=== PATIENT | female | born 2000 | race Caucasian/White ===

== ENCOUNTER 2019-08-31 13:46 | Emergency (ER) | payer OTHER ==
[2019-08-31 14:01] VITALS: BMI 24.2
--- NOTE | 2019-08-31 14:36 | PDOC ---
Attending Attestation - Resident Resident Name: Skyla Malone - HPI HPI: 08/31/19 16:10 Pt presents to the ED complaining of suicidal ideation. The patient has a several week history of depression, accompanied by anhedonia, loss of appetite, feelings of guilt and suicidal thoughts. The patient made multiple superficial cuts to her arms and thighs last night in a suicide attempt. - Physicial Exam PE: 08/31/19 16:14 Agree with resident exam. Patient is alert and oriented and in NAD. Neuro: alert and oriented x 3. CN grossly intact. Flat mood and affect. Very brief replies to questions. - Medical Decision Making 08/31/19 16:16 Pt presents to the ED complaining of suicidal ideation and depression. Seen by psychiatry who has decided that she will be committed for psychiatric treatment. Will hold in the ED pending open psychiatric bed.
--- NOTE | 2019-08-31 14:46 | PDOC ---
History of Present Illness - General Chief Complaint: Suicidal Stated Complaint: SUICIDAL Time Seen by Provider: 08/31/19 14:35 - History of Present Illness Initial Comments: Cynthia Ugarte is a 18yo with a history of depression and cutting behavior (5 -6 years ago) who presents with a friend after a suicide attempt today. She says that she cut her arms and legs this morning in an attempt to kill herself. She states that she has been feeling very sad for "a while" but has not talked to anyone about her feelings, though she did previously see a therapist in middle and high school. She reports that she has been excessively tired, sleeping much of the day, and has lost her appetite. She reports that her clothes have become very loose, though she does not know if she has lost weight. She reports loss of interest in activities; she recently tried to get back into playing soccer, which she used to enjoy, but could not find the energy to continue. Ms Ugarte additionally says that she does not like to be at home (lives with parents and 2 siblings) because she is uncomfortable as she feels she is letting everyone down. She does feel safe at home and does not have concerns that anyone will harm her or that she will harm anyone else. Ms Ugarte denies any hallucinations, delusion, drug use, or risky behavior. She does report drinking alcohol several times per week in an attempt to feel better. She also endorses occasional periods of time when she feels anxious and restless, when she does not sleep much, but she is unable to clarify how often this occurs or how long it lasts. Past History - Past Medical History Allergies/Adverse Reactions: Allergies Allergy/AdvReac Type Severity Reaction Status Date / Time No Known Allergies Allergy Verified 08/31/19 14:02 Home Medications: Ambulatory Orders No Home Medications 0 dose .ROUTE UTDICT 03/07/13 COPD: No Psychiatric Problems: Yes - Psycho Social/Smoking Cessation Hx Smoking Status: No Smoking History: Never smoked Have you smoked in the past 12 months: No Number of Cigarettes Smoked Daily: 0 Information on smoking cessation initiated: No Hx Alcohol Use: No Drug/Substance Use Hx: No Review of Systems - Review of Systems Comments:: General: No fevers, no chills, no weight or appetite change, no malaise HEENT: No changes in vision, no changes in hearing, no congestion, no sore throat CV: No chest pain, no palpitations, no LE edema Pulm: No SOB, no cough, no wheezing GI: No nausea or vomiting, no change in bowel habits, no melena : No frequency, no urgency, no dysuria Musc: No back pain, no joint swelling, no recent injury Skin: No rash, no lesions, no erythema Endo: No excessive thirst, no heat/cold intolerance Heme: No unusual bruising or bleeding, no swollen glands Neuro: No syncope, no numbness/tingling, no focal weakness Vasc: No claudication Psych: See HPI *Physical Exam - Vital Signs Last Vital Signs Temp Pulse Resp BP Pulse Ox 98.0 F 85 16 152/87 100 08/31/19 13:58 08/31/19 13:58 08/31/19 13:58 08/31/19 13:58 08/31/19 13:58 - Physical Exam General: In no acute distress HEENT: Atraumatic, PERRL, EOMI, MMM, voice normal Cards: RRR, no murmur appreciated Pulm: Comfortable on room air, clear to auscultation bilaterally Abd: Soft, nontender, nondistended : No CVA tenderness Ext: Moves all extremities, ROM intact. No LE edema. Strength 5/5 and equal bilaterally Vasc: Extremities WWP. Skin: Numerous shallow, linear lacerations over b/l anterior (palmar) forearms, b/l anterior thighs. No active bleeding. no surrounding erythema or edema. No additional rash or lesion. Neuro: A&Ox3, CN grossly intact, normal speech, motor/sensory grossly intact and symmetric Psych: Depressed, does not make eye contact, minimal facial expression. Speech logical, appropriate rate. No hallucinations/delusions observed. Expresses active suicidal ideation. ED Treatment Course - LABORATORY CBC & Chemistry Diagram: 08/31/19 15:40 08/31/19 15:40 Medical Decision Making - Medical Decision Making 08/31/19 14:45 Cynthia Ugarte is a 18yo with a history of depression and cutting behavior (5 -6 years ago) who presents with a friend after a suicide attempt today. She is noted to have multiple shallow cuts on her b/l forearms and thighs but no life- threatening injuries. - Likely major depression with sadness, fatigue, loss of appetite, loss of interest, guilt, self-medication w/ alcohol. H/o depression and not currently on treatment - Psychiatry consult for evaluation - Multiple lacerations are shallow and not bleeding, do not need urgent intervention - Medical clearance for possible transfer. CBC, CMP, TFT's, UA, U preg, tox, salicylates, acetaminophen 08/31/19 16:21 - Seen by psych (Clayton Hoang). Should be sent for inpatient psych management - 2PC forms signed by BETH Hoang and Dr Perez - Will page social work for help with placement 08/31/19 17:22 - Labs reviewed. No concerning abnormalities. Tox negative, negative - No response from SW. Will re-page 08/31/19 17:37 - Social work is no longer available in the hospital - Will need social work or case management to assist with transfer to inpatient psych when they are available - Will remain in ED pending transfer to inpatient psych. 09/01/19 00:00 - Pt still resting comfortably - To be signed out to Dr Radford for the remainder of her ED care. Discussed with Dr Chris Amaya PGY2 Discharge - Discharge Information Problems reviewed: Yes Clinical Impression/Diagnosis: Suicidal intent Condition: Stable - Follow up/Referral - Patient Discharge Instructions - Post Discharge Activity Work/Back to School Note: My Personal Safety Plan
[2019-08-31 15:53] LABS: BASO % 0.3 % (0-2.0); EOS % 1.8 % (0-4.5); HEMATOCRIT 41.5 % (32.4-45.2); HEMOGLOBIN 13.9 GM/dL (10.7-15.3); LYMPH % 27.7 % (8-40); MCH 30.4 pg (25.7-33.7); MCHC 33.5 g/dl (32.0-36.0); MEAN CELL VOLUME 90.7 fl (80-96); MEAN PLT VOLUME 8.9 fl (7.5-11.1); MONO % 5.5 % (3.8-10.2); NEUT % 64.7 % (42.8-82.8); PLATELET COUNT 263 K/MM3 (134-434); RBC 4.58 M/mm3 (3.60-5.2); RDW 13.2 % (11.6-15.6); WHITE BLOOD COUNT 9.4 K/mm3 (4.0-10.0)
[2019-08-31 16:02] LABS: EPI CELLS 7.7 /HPF (0-5/HPF); HYALINE CASTS 4 /lpf (0-8); URINE APPEARANCE CLOUDY; URINE BACTERIA 136.3 /hpf (NEGATIVE); URINE BILIRUBIN NEGATIVE (NEGATIVE); URINE COLOR YELLOW; URINE GLUCOSE (UA) NEGATIVE (NEGATIVE); URINE KETONE 1+ (NEGATIVE); URINE LEUK ESTERASE TRACE (NEGATIVE); URINE NITRITE NEGATIVE (NEGATIVE); URINE PROTEIN NEGATIVE (NEGATIVE); URINE RBC 3 /hpf (0-4); URINE UROBILINOGEN 0.2 mg/dL (0.2-1.0); URINE WBC 5 /hpf (0-5)
[2019-08-31 16:11] LABS: COCAINE, UR NEGATIVE ng/ml (CUTOFF=300); OPIATES, URI NEGATIVE ng/ml (CUTOFF=300); PHENCYCLIDINE,URINE NEGATIVE ng/ml (CUTOFF=25); URINE AMPHETAMINES NEGATIVE ng/ml (CUTOFF=500); URINE BENZODIAZEPINES NEGATIVE ng/ml (CUTOFF=200)
[2019-08-31 16:12] LABS: METHADONE, UR NEGATIVE ng/ml (CUTOFF=300); URINE BARBITURATES NEGATIVE ng/ml (CUTOFF=200)
[2019-08-31 16:26] LABS: ALBUMIN 3.8 g/dl (3.4-5.0); BILIRUBIN,TOTAL 0.6 mg/dL (0.2-1); BLOOD UREA NITROGEN 9.8 mg/dL (7-18); CREATININE 0.5 mg/dL (0.55-1.3); POTASSIUM 3.9 mmol/L (3.5-5.1); TOT PROT 7.2 g/dl (6.4-8.2)
--- NOTE | 2019-08-31 16:29 | PN ---
Mental Health Exam - Mental Status Exam Alert and Oriented to: Time, Place, Person Cognitive Function: Grossly Intact Patient Appearance: Unkempt, Disheveled Mood: Apathetic, Depressed, Fearful, Sad, Nervous, Withdrawn, Anxious, Apprehensive Affect: Mood Congruent, Flat, Blunted, Labile Patient Behavior: Crying, Guarded, Fearful, Impulsive, Talkative, Cooperative Speech Pattern: Perseverating, Tangential Voice Loudness: Moderately Soft/Quiet Thought Process: Tangential Thought Disorder: Not Present Hallucinations: None Suicidal Ideation: Current, Plan ( cutting self) Homicidal Ideation: Denies (" but very fearful to see her mother". ) Insight/Judgement: Impaired Sleep: Poorly, Difficulty falling asleep Appetite: Poor, Weight loss Muscle strength/Tone: Mild Hypertonicity Gait/Station: Deferred Additional Comments: Ms Ugarte is a 18 yo female seen in [facility] Er, room 9 with a security watch. Client in hospital gowns, slight, underweight build. She presents to ER today with her friend Kingsley after she has made multiple lacerations on her arms with a blade. She is extremly anxious, and tearful during interview. She expressed that "my life is not worth living". Client ackonwledged that she started to binge dring over last monday and . In past she has useed marjuanna. She has lost intrest in what she likes to do. 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 She has a poor sleep pattern, loss of appetite, express suicidal ideation with plan. Client was seen by a therapist in the past year but stopped attending. She has poor communication with her mother at this time, who she feels does not understand her. . DX major Depression recurrent, ( was treated with SSRI as a 7yo child ) . Plan admit to inpatient psychiatry on involuntary status as she is a danger to herself. Start Lexapro 5mg per day.
[2019-08-31] MEDS ORDERED: ACETAMINOPHEN 325 MG TABLET (FP) PO PRN (19:30)
--- NOTE | 2019-09-01 19:14 | PDOC ---
*Physical Exam - Vital Signs Last Vital Signs Temp Pulse Resp BP Pulse Ox 97.7 F 82 19 124/79 98 09/01/19 12:23 09/01/19 16:59 09/01/19 16:59 09/01/19 16:59 09/01/19 16:59 ED Treatment Course - LABORATORY CBC & Chemistry Diagram: 08/31/19 15:40 08/31/19 15:40 - ADDITIONAL ORDERS Additional order review: Laboratory Results 09/01/19 11:00 Alcohol, Quantitative < 3 08/31/19 15:40 RBC 4.58 MCV 90.7 MCHC 33.5 RDW 13.2 MPV 8.9 Neutrophils % 64.7 Lymphocytes % 27.7 Monocytes % 5.5 Eosinophils % 1.8 Basophils % 0.3 Medical Decision Making - Medical Decision Making 09/01/19 19:13 Received signout from day team. Cynthia Ugarte is a 18yo with a history of depression and cutting behavior (5 -6 years ago) presenting after a suicide attempt (multiple shallow cuts on her b /l forearms and thighs but no life-threatening injuries) likely d/t major depression. On re-examination, pt calm, denies SI/HI, under 1:1 observation. Pt medically cleared for transfer to inpatient psych. Discharge - Discharge Information Problems reviewed: Yes Clinical Impression/Diagnosis: Suicidal intent Condition: Stable - Follow up/Referral - Patient Discharge Instructions - Post Discharge Activity Work/Back to School Note: My Personal Safety Plan
[2019-09-01] MEDS ORDERED: ACETAMINOPHEN 325 MG TABLET (FP) ONE (23:33)
--- NOTE | 2019-09-02 00:54 | EKG ---
Test Reason : Blood Pressure : / mmHG Vent. Rate : 062 BPM Atrial Rate : 062 BPM P-R Int : 170 ms QRS Dur : 070 ms QT Int : 388 ms P-R-T Axes : 058 053 041 degrees QTc Int : 393 ms NORMAL SINUS RHYTHM POSSIBLE LEFT ATRIAL ENLARGEMENT BORDERLINE ECG NO PREVIOUS ECGS AVAILABLE Confirmed by COSTA RIDLEY, MAGNOLIA ([id number]) on 09/02/2019 12:54:21 AM Referred By: Confirmed By:MAGNOLIA SKELTON MD
--- NOTE | 2019-09-02 04:51 | PDOC ---
*Physical Exam - Vital Signs Last Vital Signs Temp Pulse Resp BP Pulse Ox 98.6 F 82 16 110/76 100 09/01/19 20:14 09/02/19 04:28 09/02/19 04:28 09/02/19 04:28 09/02/19 04:28 ED Treatment Course - LABORATORY CBC & Chemistry Diagram: 08/31/19 15:40 08/31/19 15:40 - ADDITIONAL ORDERS Additional order review: 08/31/19 15:40 RBC 4.58 MCV 90.7 MCHC 33.5 RDW 13.2 MPV 8.9 Neutrophils % 64.7 Lymphocytes % 27.7 Monocytes % 5.5 Eosinophils % 1.8 Basophils % 0.3 Medical Decision Making - Medical Decision Making 09/02/19 04:50 Patient resting comfortably. Not agitated. Discharge - Discharge Information Problems reviewed: Yes Clinical Impression/Diagnosis: Suicidal intent Condition: Stable - Follow up/Referral - Patient Discharge Instructions - Post Discharge Activity Work/Back to School Note: My Personal Safety Plan
--- NOTE | 2019-09-02 06:44 | PN ---
Progress Note, Physician Chief Complaint: cherri Ugarte is a 18 yo female seen in [facility] Er, room 9 with a security watch. Client in sleeping on stretcher, hospital gowns, slight, underweight build. She presents to ER on 08/31 by ambulance, with her friend Kingsley after she has made multiple lacerations on her arms, and thighs with a blade. She is extremely anxious, and tearful during interview. She expressed that "my life is not worth living". Client acknowledged that she started to binge drink over previous week. In past she smoked marijuana, denies other substance use. She has lost interest in what she likes to do. 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 She has a poor sleep pattern, loss of appetite, express suicidal ideation with plan. Client was seen by a therapist in the past year but stopped attending. She has poor communication with her mother at this time, who she feels does not understand her, she feels extremely guilty, that she has let her family down in so many ways. - Current Medication List Current Medications: Active Medications Acetaminophen (Tylenol -) 650 mg PO Q6H PRN PRN Reason: PAIN Last Admin: 09/01/19 23:34 Dose: 650 mg - Objective Vital Signs: Vital Signs Temperature 98.6 F 09/01/19 20:14 Pulse Rate 82 09/02/19 04:28 Respiratory Rate 16 09/02/19 04:28 Blood Pressure 110/76 09/02/19 04:28 O2 Sat by Pulse Oximetry (%) 100 09/02/19 04:28 Constitutional: Yes: Anxious, Thin Respiratory: Yes: WNL Psychiatric: Yes: Suicidal Ideation (Ms Ugarte is unable to contract for safety. She is impulsive and likely to hurt herself again without treatment and safety plan in place.) Labs: CBC, BMP 08/31/19 15:40 08/31/19 15:40 Problem List - Problems (1) Major depressive disorder, recurrent Code(s): F33.9 - MAJOR DEPRESSIVE DISORDER, RECURRENT, UNSPECIFIED Qualifiers: Active/Remission status: currently active Major depression episode severity : severe Psychotic features: without psychotic features Qualified Code(s): F33.2 - Major depressive disorder, recurrent severe without psychotic features Assessment/Plan She is in danger to self, severely anxious and depression. Seek/ request hospital admission to inpatient psychiatric Facility. Certification paperwork complete !11/01/2018. Maintain safety precautions, no sharps in vicinity, safety Constant observation. Start Lexapro 5mg per day for depression, Ms Ugarte is in agreement.
--- NOTE | 2019-09-02 07:17 | PDOC ---
*Physical Exam - Vital Signs Last Vital Signs Temp Pulse Resp BP Pulse Ox 98.6 F 57 L 18 110/63 97 09/01/19 20:14 09/02/19 07:08 09/02/19 07:08 09/02/19 07:08 09/02/19 07:08 - Physical Exam General Appearance: Yes: Nourished, Appropriately Dressed. No: Apparent Distress HEENT: positive: EOMI, CHRISTAL, Normal ENT Inspection, Normal Voice Neck: positive: Supple. negative: Rigid Respiratory/Chest: positive: Lungs Clear, Normal Breath Sounds Cardiovascular: positive: Regular Rhythm, Regular Rate, S1, S2 Vascular Pulses: Dorsalis-Pedis (R): 2+, Doralis-Pedis (L): 2+ Gastrointestinal/Abdominal: positive: Normal Bowel Sounds, Soft Lymphatic: negative: Adenopathy Musculoskeletal: positive: Normal Inspection. 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 intact, Fully Oriented, Alert, Normal Mood/ Affect, Normal Response, Motor Strength 01/27 ED Treatment Course - LABORATORY CBC & Chemistry Diagram: 08/31/19 15:40 08/31/19 15:40 - ADDITIONAL ORDERS Additional order review: 08/31/19 15:40 RBC 4.58 MCV 90.7 MCHC 33.5 RDW 13.2 MPV 8.9 Neutrophils % 64.7 Lymphocytes % 27.7 Monocytes % 5.5 Eosinophils % 1.8 Basophils % 0.3 Medical Decision Making - Medical Decision Making Patient signed out to me from night team pending transfer - I have reviewed the prior notes and two PC's have signed the necessity for transfer - I called the [facility] at 7:15 am and they told me they have all the necessary papers for the transfer so they are only waiting on a room to clear up at [facility] - The transfer center [place] said they are not missing anything and just waiting for a room to clear up - They told me they will call me back with an update at [phone] Arnold's note - patient is to be started on lexapro 5 mg Calling transfer center back at 10:45 am - Speaking with Awilda - She states they are taking adolescent patients right now. Our patient is still on the wait list. Difficult to predict bc of what they get in their ER. - She is trying to connect me with an attending or resident at [facility] - Dr. Danilo Wilkins is the attending at [facility] - they will message him and ask to call the [phone] number I spoke with social media marketer who has called [facility] two times today. They are saying they still do not have any beds ready for her. - Patient will be signed out to night team for further observation until a bed is ready. Discharge - Discharge Information Problems reviewed: Yes Clinical Impression/Diagnosis: Suicidal intent Condition: Stable Disposition: TRANSFER ACUTE CARE/OTHER HOSP - Admission No - Follow up/Referral - Patient Discharge Instructions - Post Discharge Activity Work/Back to School Note: My Personal Safety Plan
[2019-09-02] MEDS ORDERED: ESCITALOPRAM OXALATE 10 MG TABLET (FP) PO ONE (07:21)
[2019-09-02] MEDS ORDERED: ESCITALOPRAM OXALATE 10 MG TABLET (FP) ONE (09:32)
--- NOTE | 2019-09-03 05:50 | PDOC ---
*Physical Exam - Vital Signs Last Vital Signs Temp Pulse Resp BP Pulse Ox 98.1 F 64 18 104/59 L 99 09/03/19 03:24 09/03/19 03:24 09/03/19 03:24 09/03/19 03:24 09/03/19 03:24 - Physical Exam General Appearance: Yes: Nourished, Appropriately Dressed. No: Apparent Distress HEENT: positive: EOMI Neck: positive: Supple. negative: Carotid bruit Respiratory/Chest: positive: Lungs Clear, Normal Breath Sounds. negative: Crackles, Rales, Rhonchi, Stridor, Wheezing Cardiovascular: positive: Regular Rhythm, Regular Rate Vascular Pulses: Dorsalis-Pedis (R): 4+, Doralis-Pedis (L): 4+ Gastrointestinal/Abdominal: positive: Flat, Soft. negative: Tenderness Musculoskeletal: negative: CVA Tenderness Integumentary: positive: Normal Color, Dry, Warm Neurologic: positive: Fully Oriented, Alert, Normal Mood/Affect ED Treatment Course - LABORATORY CBC & Chemistry Diagram: 08/31/19 15:40 08/31/19 15:40 - ADDITIONAL ORDERS Additional order review: 08/31/19 15:40 RBC 4.58 MCV 90.7 MCHC 33.5 RDW 13.2 MPV 8.9 Neutrophils % 64.7 Lymphocytes % 27.7 Monocytes % 5.5 Eosinophils % 1.8 Basophils % 0.3 - Medications Given in the ED: ED Medications Discontinued Medications Generic Name Dose Route Start Last Admin Trade Name Freq PRN Reason Stop Dose Admin Escitalopram Oxalate 5 mg 09/02/19 07:21 09/02/19 09:38 Lexapro - PO 09/02/19 07:22 5 mg ONCE ONE Administration Medical Decision Making - Medical Decision Making 09/03/19 05:54 s/o from day team - pending transfer to [facility] for suicidal ideation, 2 PC -Called [facility], states pt is still on the wait list under review Pt stable, no medical complaints Discharge - Discharge Information Problems reviewed: Yes Clinical Impression/Diagnosis: Suicidal intent Condition: Stable Disposition: TRANSFER ACUTE CARE/OTHER HOSP - Follow up/Referral - Patient Discharge Instructions - Post Discharge Activity Work/Back to School Note: My Personal Safety Plan
--- NOTE | 2019-09-03 07:21 | PDOC ---
*Physical Exam - Vital Signs Last Vital Signs Temp Pulse Resp BP Pulse Ox 98.1 F 65 18 107/67 99 09/03/19 03:24 09/03/19 06:24 09/03/19 06:24 09/03/19 06:24 09/03/19 06:24 - Physical Exam General Appearance: Yes: Nourished, Appropriately Dressed. No: Apparent Distress HEENT: positive: EOMI, CHRISTAL, Normal ENT Inspection, Normal Voice Neck: positive: Supple Respiratory/Chest: positive: Lungs Clear, Normal Breath Sounds. negative: Respiratory Distress, Accessory Muscle Use Cardiovascular: positive: Regular Rhythm, Regular Rate, S1, S2 Vascular Pulses: Dorsalis-Pedis (R): 2+, Doralis-Pedis (L): 2+ Gastrointestinal/Abdominal: positive: Normal Bowel Sounds, Soft Rectal Exam: positive: deferred Lymphatic: negative: Adenopathy Musculoskeletal: positive: Normal Inspection. 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 NML intact, Fully Oriented, Alert, Normal Mood/ Affect, Normal Response ED Treatment Course - LABORATORY CBC & Chemistry Diagram: 08/31/19 15:40 08/31/19 15:40 - ADDITIONAL ORDERS Additional order review: 08/31/19 15:40 RBC 4.58 MCV 90.7 MCHC 33.5 RDW 13.2 MPV 8.9 Neutrophils % 64.7 Lymphocytes % 27.7 Monocytes % 5.5 Eosinophils % 1.8 Basophils % 0.3 - Medications Given in the ED: ED Medications Discontinued Medications Generic Name Dose Route Start Last Admin Trade Name Mayela PRN Reason Stop Dose Admin Escitalopram Oxalate 5 mg 09/02/19 07:21 09/02/19 09:38 Lexapro - PO 09/02/19 07:22 5 mg ONCE ONE Administration Medical Decision Making - Medical Decision Making Signed out to me from night team Calling [facility] at 8 am - Spoke with Disha at transfer center. - As of 4:11 am patient was on wait list, they are getting ready to round and discuss all patients awaiting beds. - All papers have been filled out - Patient is only awaiting a bed - Transfer center states they will keep me posted every 2 hours and call me at [phone] Call back from disha at 8:45 am - They would like to receive a recent note as an update on the patient - Will fax over most recent psychiatry report - Per Disha - Patient placed on high priority list to receive a bed - I have faxed the recent [place] note to the Transfer center # at 9 am - transfer center called at 9:40 saying they have not received the fax - I re-faxed it again at 9:45 - Calling transfer center to confirm they received fax Speaking with Awilda now - 9:50 - She states the fax is usually delayed and comes in 15 minutes after being sent - She says they have not yet received the fax but she will call in 15 minutes if she did not get it. - She has given me a 2nd fax number - [phone] - Fax sent over to 2nd fax number [facility] called back at 11:00 AM and said they received faxed paper, patient is accepted for transfer, they are just waiting for an open room. - Dr. Jauregui re-evaluated patient today and agrees with current plan that patient still needs transfer to [facility] for full psych admission [facility] has a bed for the patient - She is accepted for transfer at 2:30 pm - [facility] room details: A2, 1246, Bed A Accepting physician: Dr. woodruff at [facility] EMS took patient out of ER to [place] Discharge - Discharge Information Problems reviewed: Yes Clinical Impression/Diagnosis: Suicidal intent Condition: Stable Disposition: TRANSFER ACUTE CARE/OTHER HOSP - Admission No - Follow up/Referral - Patient Discharge Instructions Patient Printed Discharge Instructions: DI for Suicidal Ideation-Adult - Post Discharge Activity Work/Back to School Note: My Personal Safety Plan - Transfer to Acute Care Facility [facility] Accepting Physician:: Dr. Woodruff Transfer Comment: A2 1246 Bed A
[2019-09-03] MEDS ORDERED: ESCITALOPRAM OXALATE 10 MG TABLET (FP) PO ONE (08:44)
[2019-09-03] MEDS ORDERED: ESCITALOPRAM OXALATE 10 MG TABLET (FP) ONE (10:27)
--- NOTE | 2019-09-03 11:09 | PN ---
Progress Note (short form) - Note Progress Note: Psych re evaluation; MS: alert, oriented, appears sad and withdrawn. Reports still feeling suicidal and worthless and hopeless. Cognition intact.Not Psychotic at this time. Plan; 1) Continue with 1:1. 2) Transfer to In Patient Psych unit.
[2019-09-03 16:05] VITALS: BP 122/67; PULSE 79; TEMP 97.6
== END 2019-09-03 16:42 | disposition short-term general hospital (02) ==
LOC: JER 13:46
DX: T14.91XA Suicide attempt, initial encounter (principal); X78.9XXA Intentional self-harm by unspecified sharp object, initial encounter; Y93.89 Activity, other specified; Y92.89 Other specified places as the place of occurrence of the external cause; F33.9 Major depressive disorder, recurrent, unspecified; F33.2 Major depressive disorder, recurrent severe without psychotic features
CPT/HCPCS: 36415; 71045-TC-FY; 80053; 80307; 81003; 84439; 84443; 84703; 85025; 93005; 93010; 99285-25

== ENCOUNTER 2019-10-29 19:52 | Emergency (ER) | payer OTHER ==
[2019-10-29 20:04] VITALS: BP 116/76; PULSE 92; TEMP 98.5; BMI 22.2
--- NOTE | 2019-10-29 20:33 | PDOC ---
Rapid Medical Evaluation Chief Complaint: Vaginal Bleeding Time Seen by Provider: 10/29/19 20:31 Medical Evaluation: Allergies Allergy/AdvReac Type Severity Reaction Status Date / Time Penicillins Allergy Verified 10/29/19 20:04 Vital Signs Temp Pulse Resp BP Pulse Ox 98.5 F 92 H 18 116/76 98 10/29/19 19:56 10/29/19 19:56 10/29/19 19:56 10/29/19 19:56 10/29/19 19:56 10/29/19 20:32 Pt c/o: vag bleed since this am, 5 weeks preg, mild lower abd cramping Pt on brief exam: vss, mid suprapubic tenderness, pt ordered for: labs, urine, u/s Pt to proceed to the ED Discharge Disposition - Diagnosis Vagina bleeding, Pelvic pain with positive beta-human chorionic gonadotropin ( BhCG) in female, UTI (urinary tract infection) - Discharge Dispostion Disposition: HOME Last Admission D/C Date: 01/01/00 - Prescriptions Prescriptions: Nitrofurantoin Monohyd/M-Cryst [Macrobid -] 100 mg PO BID #14 capsule - Referrals Referrals: Jacek Douglas MD [Staff Physician] - Call tomorrow - Patient Instructions Printed Discharge Instructions: DI for Vaginal Bleeding During Additional Instructions: take macrobid as prescribed Return to the ER if you are soaking 2 pads per hour, severe abdominal pain, or worsening symptoms. it is very important that you return in 2 days for your levels or follow-up with your outside cutter in 2 days - Post Discharge Activity Work/School Note: Back to Work
[2019-10-29 22:06] LABS: BASO % 0.5 % (0-2.0); EOS % 2.9 % (0-4.5); HEMATOCRIT 39.5 % (32.4-45.2); HEMOGLOBIN 13.1 GM/dL (10.7-15.3); LYMPH % 22.3 % (8-40); MCH 30.2 pg (25.7-33.7); MCHC 33.3 g/dl (32.0-36.0); MEAN CELL VOLUME 90.8 fl (80-96); MEAN PLT VOLUME 8.8 fl (7.5-11.1); MONO % 7.4 % (3.8-10.2); NEUT % 66.9 % (42.8-82.8); PLATELET COUNT 255 K/MM3 (134-434); RBC 4.35 M/mm3 (3.60-5.2); RDW 13.5 % (11.6-15.6); WHITE BLOOD COUNT 10.6 K/mm3 (4.0-10.0)
[2019-10-29 22:24] LABS: EPI CELLS 11.4 /HPF (0-5/HPF); HYALINE CASTS 15 /lpf (0-8); URINE APPEARANCE CLOUDY; URINE BACTERIA 890.1 /hpf (NEGATIVE); URINE BILIRUBIN NEGATIVE (NEGATIVE); URINE COLOR YELLOW; URINE GLUCOSE (UA) NEGATIVE (NEGATIVE); URINE KETONE NEGATIVE (NEGATIVE); URINE LEUK ESTERASE 2+ (NEGATIVE); URINE NITRITE NEGATIVE (NEGATIVE); URINE PROTEIN NEGATIVE (NEGATIVE); URINE UROBILINOGEN 0.2 mg/dL (0.2-1.0); URINE WBC 83 /hpf (0-5)
[2019-10-29 22:38] LABS: ALBUMIN 3.7 g/dl (3.4-5.0); BILIRUBIN,TOTAL 0.2 mg/dL (0.2-1); BLOOD UREA NITROGEN 7.8 mg/dL (7-18); CALCIUM 9.2 mg/dL (8.5-10.1); CREATININE 0.5 mg/dL (0.55-1.3); POTASSIUM 4.1 mmol/L (3.5-5.1); TOT PROT 7.3 g/dl (6.4-8.2)
[2019-10-29 23:25] LABS: URINE RBC 7.9 /hpf (0-4)
--- NOTE | 2019-10-30 00:26 | PDOC ---
*Physical Exam - Vital Signs Last Vital Signs Temp Pulse Resp BP Pulse Ox 98.5 F 92 H 18 116/76 98 10/29/19 19:56 10/29/19 19:56 10/29/19 19:56 10/29/19 19:56 10/29/19 19:56 ED Treatment Course - LABORATORY CBC & Chemistry Diagram: 10/29/19 21:44 10/29/19 21:44 - ADDITIONAL ORDERS Additional order review: Laboratory Results 10/29/19 10/29/19 10/29/19 21:44 21:44 21:44 Sodium 138 Potassium 4.1 Chloride 107 Carbon Dioxide 25 Anion Gap 6 L BUN 7.8 Creatinine 0.5 L Est GFR (CKD-EPI)AfAm 162.62 Est GFR (CKD-EPI)NonAf 140.31 Random Glucose 101 Calcium 9.2 Total Bilirubin 0.2 AST 18 ALT 24 Alkaline Phosphatase 78 Total Protein 7.3 Albumin 3.7 Beta HCG, Quant 102.6 Urine Color Yellow Urine Appearance Cloudy Urine pH 6.0 Ur Specific [place] 1.019 Urine Protein Negative Urine Glucose (UA) Negative Urine Ketones Negative Urine Blood 3+ H Urine Nitrite Negative Urine Bilirubin Negative Urine Urobilinogen 0.2 Ur Leukocyte Esterase 2+ H Urine WBC (Auto) 83 Urine RBC (Auto) 7.9 Urine Casts (Auto) 15 U Pathogenic Cast Auto None U Epithel Cells (Auto) 11.4 Urine Bacteria (Auto) 890.1 Blood Type O POSITIVE Antibody Screen Negative 10/29/19 21:44 RBC 4.35 MCV 90.8 MCHC 33.3 RDW 13.5 MPV 8.8 Neutrophils % 66.9 Lymphocytes % 22.3 Monocytes % 7.4 Eosinophils % 2.9 Basophils % 0.5 Medical Decision Making - Medical Decision Making 10/30/19 00:25 Patient seen by the advanced practice provider under my direct supervision. Ancillary testing reviewed as necessary. I agree with plan as outlined by the advanced practice provider. Discharge - Discharge Information Problems reviewed: Yes Clinical Impression/Diagnosis: Vagina bleeding, Pelvic pain with positive beta-human chorionic gonadotropin ( BhCG) in female Disposition: HOME - Follow up/Referral Referrals: Jacek Douglas MD [Staff Physician] - Call tomorrow - Patient Discharge Instructions Patient Printed Discharge Instructions: DI for Vaginal Bleeding During Additional Instructions: Return to the ER if you are soaking 2 pads per hour, severe abdominal pain, or worsening symptoms. it is very important that you return in 2 days for your levels or follow-up with your aurist in 2 days - Post Discharge Activity Work/Back to School Note: Back to Work
--- NOTE | 2019-10-30 00:51 | PDOC ---
History of Present Illness - General Chief Complaint: Vaginal Bleeding Stated Complaint: FIVE WKS /BLEEDING Time Seen by Provider: 10/29/19 20:31 History Source: Patient - History of Present Illness Initial Comments: 10/30/19 00:45 18-year-old female complaining of vaginal spotting today with abdominal cramping. Patient reports that she has a positive urine . Last menstrual period was 09/23/2019. Denies urinary symptoms denies heavy vaginal bleeding No past medical history Past History - Past Medical History Allergies/Adverse Reactions: Allergies Allergy/AdvReac Type Severity Reaction Status Date / Time Penicillins Allergy Verified 10/29/19 20:04 Home Medications: Ambulatory Orders No Home Medications 0 dose .ROUTE UTDICT 03/07/13 Nitrofurantoin Monohyd/M-Cryst [Macrobid -] 100 mg PO BID #14 capsule 10/30/19 COPD: No Psychiatric Problems: Yes - Psycho Social/Smoking Cessation Hx Smoking Status: No Smoking History: Never smoked Have you smoked in the past 12 months: No Number of Cigarettes Smoked Daily: 0 Hx Alcohol Use: No Drug/Substance Use Hx: No Review of Systems - Review of Systems Able to Perform ROS?: Yes Is the patient limited [place] proficient: No Constitutional: No: Symptoms Reported, See HPI, Chills, Diaphoresis, Fever, Loss of Appetite, Malaise, Night Sweats, Weakness, Weight Stable, Unintentional Wgt. Loss, Unexplained wgt Loss, Other *Physical Exam - Vital Signs Last Vital Signs Temp Pulse Resp BP Pulse Ox 98.5 F 92 H 18 116/76 98 10/29/19 19:56 10/29/19 19:56 10/29/19 19:56 10/29/19 19:56 10/29/19 19:56 - Physical Exam General Appearance: Yes: Appropriately Dressed Respiratory/Chest: positive: Lungs Clear, Normal Breath Sounds ED Treatment Course - LABORATORY CBC & Chemistry Diagram: 10/29/19 21:44 10/29/19 21:44 - ADDITIONAL ORDERS Additional order review: Laboratory Results 10/29/19 10/29/19 10/29/19 21:44 21:44 21:44 Sodium 138 Potassium 4.1 Chloride 107 Carbon Dioxide 25 Anion Gap 6 L BUN 7.8 Creatinine 0.5 L Est GFR (CKD-EPI)AfAm 162.62 Est GFR (CKD-EPI)NonAf 140.31 Random Glucose 101 Calcium 9.2 Total Bilirubin 0.2 AST 18 ALT 24 Alkaline Phosphatase 78 Total Protein 7.3 Albumin 3.7 Beta HCG, Quant 102.6 Urine Color Yellow Urine Appearance Cloudy Urine pH 6.0 Ur Specific [place] 1.019 Urine Protein Negative Urine Glucose (UA) Negative Urine Ketones Negative Urine Blood 3+ H Urine Nitrite Negative Urine Bilirubin Negative Urine Urobilinogen 0.2 Ur Leukocyte Esterase 2+ H Urine WBC (Auto) 83 Urine RBC (Auto) 7.9 Urine Casts (Auto) 15 U Pathogenic Cast Auto None U Epithel Cells (Auto) 11.4 Urine Bacteria (Auto) 890.1 Blood Type O POSITIVE Antibody Screen Negative 10/29/19 21:44 RBC 4.35 MCV 90.8 MCHC 33.3 RDW 13.5 MPV 8.8 Neutrophils % 66.9 Lymphocytes % 22.3 Monocytes % 7.4 Eosinophils % 2.9 Basophils % 0.5 ED Progress Note - Progress Note Progress Note: 10/30/19 00:50 A: vaginal bleeding inpregnancy P: CBC beta HCG TVUS Medical Decision Making - Medical Decision Making 10/30/19 01:04 TVUS: No visible intrauterine gestational sac, possibly due to early gestation or spontaneous . Endometrial stripe thickness 14 mm. No adnexal masses appreciated. Advise correlation with quantitative serial beta-hCG and follow-up ultrasound as clinically indicated to exclude possibility of nonvisualized ectopic . No ovarian torsion. Color flow with appropriate arterial and/or venous waveforms. Discharge - Discharge Information Problems reviewed: Yes Clinical Impression/Diagnosis: Vagina bleeding, Pelvic pain with positive beta-human chorionic gonadotropin ( BhCG) in female, UTI (urinary tract infection) Disposition: HOME - Additional Discharge Information Prescriptions: Nitrofurantoin Monohyd/M-Cryst [Macrobid -] 100 mg PO BID #14 capsule - Follow up/Referral Referrals: Jacek Douglas MD [Staff Physician] - Call tomorrow - Patient Discharge Instructions Patient Printed Discharge Instructions: DI for Vaginal Bleeding During Additional Instructions: take macrobid as prescribed Return to the ER if you are soaking 2 pads per hour, severe abdominal pain, or worsening symptoms. it is very important that you return in 2 days for your levels or follow-up with your clinical recruiter in 2 days - Post Discharge Activity Work/Back to School Note: Back to Work
== END 2019-10-30 01:48 | disposition home or self-care (01) ==
LOC: JER 19:52
DX: O26.891 Other specified pregnancy related conditions, first trimester (principal); O20.8 Other hemorrhage in early pregnancy; O23.41 Unspecified infection of urinary tract in pregnancy, first trimester; Z3A.00 Weeks of gestation of pregnancy not specified; Z88.0 Allergy status to penicillin
CPT/HCPCS: 36415; 76817-TC; 80053; 81003; 84702; 85025; 86850; 86900; 86901; 87077; 87086; 99283-25

== ENCOUNTER 2019-11-01 07:21 | Emergency (ER) | payer OTHER ==
--- NOTE | 2019-11-01 07:49 | PDOC ---
History of Present Illness - General Chief Complaint: Vaginal Bleeding Stated Complaint: 5WKS BLEEDING Time Seen by Provider: 11/01/19 07:48 History Source: Patient Exam Limitations: No Limitations - History of Present Illness Initial Comments: 11/01/19 07:48 Cynthia Ugarte is a 18F @5 weeks presenting with first trimester vaginal bleeding. Patient seen 3 days ago in [facility] ED for same complaint, originally had some mild suprapubic pain and vaginal spotting. US at that time did not show IUP, needed 2 day beta f/u and repeat US. Diagnosed with UTI, sent home on Macrobid, has been taking for 1 day. Saw OBGYN yesterday, told to return to ED if has worsening bleeding. Since last night has had 1-2 pads of bleeding, not any more than menses. Denies chest pain, SOB, palpitations, dizziness, unsteady gait. No other PMH. No meds. Allergy to PCN, gets hives. Denies tobacco/alcohol/drug use. Past History - Past Medical History Allergies/Adverse Reactions: Allergies Allergy/AdvReac Type Severity Reaction Status Date / Time Penicillins Allergy Verified 11/01/19 07:47 Home Medications: Ambulatory Orders Nitrofurantoin Monohyd/M-Cryst [Macrobid -] 100 mg PO BID #14 capsule 10/30/19 COPD: No Psychiatric Problems: Yes - Psycho Social/Smoking Cessation Hx Smoking Status: No Smoking History: Never smoked Have you smoked in the past 12 months: No Number of Cigarettes Smoked Daily: 0 Hx Alcohol Use: No Drug/Substance Use Hx: No Review of Systems - Review of Systems Able to Perform ROS?: Yes Constitutional: No: Chills, Fever HEENTM: No: Symptoms Reported Respiratory: No: Cough, Shortness of Breath, Hemoptysis Cardiac (ROS): No: Chest Pain, Edema, Irregular Heart Rate, Lightheadedness, Palpitations, Syncope ABD/GI: Yes: Other (abdominal pain). No: Constipated, Diarrhea, Difficulty Swallowing, Nausea, Poor Appetite, Poor Fluid Intake, Vomiting : No: Burning, Dysuria, Discharge, Frequency, Flank Pain, Hematuria Musculoskeletal: Yes: Back Pain Integumentary: No: Bruising, Change in Color, Change in Hair/Nails, Dryness, Erythema, Flushing Neurological: No: Headache, Numbness, Paresthesia, Ataxia, Dizziness Endocrine: No: Symptoms Reported Hematologic/Lymphatic: No: Symptoms Reported All Other Systems: Reviewed and Negative *Physical Exam - Physical Exam General Appearance: Yes: Nourished, Appropriately Dressed, Thin. No: Apparent Distress HEENT: negative: EOMI, CHRISTAL, Scleral Icterus (R), Scleral Icterus (L) Neck: positive: Trachea midline, Normal Thyroid, Supple. negative: Tender, Rigid, Lymphadenopathy (R), Lymphadenopathy (L), Tender lateral, Tender midline Respiratory/Chest: positive: Lungs Clear. negative: Chest Tender, Respiratory Distress, Accessory Muscle Use, Crackles, Rales, Rhonchi Cardiovascular: positive: Regular Rhythm, Regular Rate Gastrointestinal/Abdominal: positive: Normal Bowel Sounds, Flat, Soft. negative : Tender (mild pain to suprapubic palpation), Organomegaly, Pulsatile Mass, Guarding, Rebound, Tenderness Musculoskeletal: positive: Normal Inspection. negative: CVA Tenderness, Decreased Range of Motion Extremity: positive: Normal Capillary Refill, Normal Inspection, Pelvis Stable. negative: Normal Range of Motion, Tender, Pedal Edema, Swelling Integumentary: positive: Normal Color, Dry, Warm Neurologic: positive: Fully Oriented, Alert, Normal Mood/Affect, Normal Response Medical Decision Making - Medical Decision Making 11/01/19 08:52 Patient presents with f/u for 1st trimester bleeding, not having any symptomatic anemia, 1 pad worth of vaginal bleeding, mild suprapubic pain but diagnosed with UTI prior and taking outpatient Abx. Low concern for anemia, does not need other lab works. VS stable, low concern for emergent intervention. - Beta quant - TVUS for eval IUP 11/01/19 09:2 Beta quant 27, per patient was prior 102. Downtrending consistent with miscarriage. Pending TVUS at this time. 11/01/19 11:11 TVUS shows no IUP. In the context of low hCG and no vaginal bleeding at this time patient has had complete miscarriage. Patient counseled and instructed to see OBGYN for eval retained products, return precautions given. Discharge - Discharge Information Problems reviewed: Yes Clinical Impression/Diagnosis: Vagina bleeding, Complete miscarriage Condition: Stable Disposition: HOME - Follow up/Referral Referrals: Roxana Jaquez MD [Primary Care Provider] - - Patient Discharge Instructions Patient Printed Discharge Instructions: DI for Miscarriage Additional Instructions: Today you were evaluated for vaginal bleeding. We re-checked your beta hCG, or number, and it has gone down. Your ultrasound results show that you are no longer , and have had a miscarriage. You need to follow-up with your primary doctor and OBGYN in the next few days for further care and examination for retained products of conception. If you experience worsening vaginal bleeding, foul smelling discharge, abdominal pain, fever, chills, or any other new or concerning symptoms, please return to the emergency room. - Post Discharge Activity Work/Back to School Note: Back to Work
[2019-11-01 08:05] VITALS: BP 138/64; PULSE 77; TEMP 98.4; BMI 21.2
--- NOTE | 2019-11-01 14:55 | PDOC ---
Documentation entered by Jenny Burleson SCRIBE, acting as scribe for Radames Lopez MD. Radames Lopez MD: This documentation has been prepared by the Benjy shaikh Nirvannie, SCRIBE, under my direction and personally reviewed by me in its entirety. I confirm that the documentation accurately reflects all work, treatment, procedures, and medical decision making performed by me. Attending Attestation - Resident Resident Name: Yoseph Morrissey - ED Attending Attestation I have performed the following: I have examined & evaluated the patient, The case was reviewed & discussed with the resident, I agree w/resident's findings & plan, Exceptions are as noted - HPI HPI: 11/01/19 09:24 CC: Vaginal Bleeding. HPI: The patient is a 18 year old 5 weeks female A0, with a significant past medical history of, who presents to the emergency department with vaginal bleeding. Patient endorses using approximately 1-2 pads (similar to that of her menses). She notes being evaluated in the ED 3 days ago for vaginal spotting at which time she was diagnosed with a UTI on Macrobid and on USS there was no IUP (advised to have a follow-up USS and Beta HCG. Patient was evaluated by CHECKERING MACHINE ADJUSTER yesterday and advised to report tot he ED for worsening symptoms. She denies any abnormal vaginal discharge. She denies any lightheadedness or dizziness. She denies recent chest pain or shortness of breath. Allergies: Penicillins Primary Care Physician: Dr. Roly Jaquez - Physicial Exam PE: 11/01/19 09:41 Vitals: Triage Vital signs reviewed General Appearance: No acute distress, well nourished well developed, Cardiac: Regular rate and rhythym, no murmurs, no rubs, no gallops, Lungs: Clear to auscultation bilateral, good air movement bilaterally, Abdomen: Soft, non distended, normal bowel sounds, non tender to palpation Extremities: Full range of motion to all extremities, no cyanosis, clubbing, or edema Skin: Warm and dry, no rashes or lesions, no rash, no petechiae Psych: Normal mood, normal affect - Medical Decision Making 11/01/19 09:41 Well-appearing no apparent distress benign abdominal exam with active miscarriage downtrending beta findings, the need for follow-up and strict return instructions discussed with patient.
== END 2019-11-01 11:41 | disposition home or self-care (01) ==
LOC: JER 07:21 → SUPCPDRO 07:21 → JER 11:41
DX: O03.9 Complete or unspecified spontaneous abortion without complication (principal); N93.9 Abnormal uterine and vaginal bleeding, unspecified; Z88.0 Allergy status to penicillin
CPT/HCPCS: 36415; 76817-TC; 84702; 99281-25

== ENCOUNTER 2020-11-18 09:45 | Inpatient (IN) | payer OTHER ==
[2020-11-18] MEDS ORDERED: BUTORPHANOL TARTRATE 1 MG/ML VIAL IVPB PRN (10:22)
[2020-11-18] MEDS ORDERED: PROMETHAZINE HCL 25 MG/1 ML VIAL IVPB PRN (10:22)
[2020-11-18] MEDS ORDERED: OXYTOCIN 30 UNITS in 0.9% NS 30 UNIT/500 ML INFUS.BAG IVPB SCH (10:30)
[2020-11-18] MEDS: ELECTROLYTE-148 SOLN 1,000 ML IV SCH ×2 (10:40→16:00)
[2020-11-18 11:07] VITALS: BMI 28.6
[2020-11-18 11:20] LABS: BASO % 0.4 % (0-2.0); EOS % 1.8 % (0-4.5); HEMATOCRIT 35.1 % (32.4-45.2); HEMOGLOBIN 11.6 GM/dL (10.7-15.3); MCH 27.7 pg (25.7-33.7); MCHC 33.1 g/dl (32.0-36.0); MEAN CELL VOLUME 83.7 fl (80-96); MEAN PLT VOLUME 10.3 fl (7.5-11.1); MONO % 7.7 % (3.8-10.2); NEUT % 71.1 % (42.8-82.8); PLATELET COUNT 195 K/MM3 (134-434); RDW 15.8 % (11.6-15.6); WHITE BLOOD COUNT 9.5 K/mm3 (4.0-10.0)
[2020-11-18] MEDS ORDERED: OXYTOCIN 30 UNITS in 0.9% NS 30 UNIT/500 ML INFUS.BAG IVPB ONE (11:29)
[2020-11-18 11:30] LABS: INR 0.92 (0.83-1.09); PROTHROMBIN TIME (PATIENT) 11.3 SEC (9.7-13.0)
[2020-11-18 11:33] LABS: ACTIVATED PTT 27.6 SECONDS (25.2-36.5)
[2020-11-18 11:42] LABS: CALCIUM 8.6 mg/dL (8.5-10.1); POTASSIUM 3.9 mmol/L (3.5-5.1)
[2020-11-18 11:43] LABS: BLOOD UREA NITROGEN 7.6 mg/dL (7-18)
[2020-11-18 11:46] LABS: CREATININE 0.5 mg/dL (0.55-1.3)
[2020-11-18] MEDS ORDERED: PCA PUMP NR ONE ×2 (14:44→19:57)
[2020-11-18] MEDS ORDERED: FENTANYL/BUPIVACAINE/NS/PF - PCEA - 50 ML DISP.SYRIN EP ONE (14:44)
[2020-11-18] MEDS ORDERED: FENTANYL/BUPIVACAINE/NS/PF - PCEA - 50 ML DISP.SYRIN EP SCH (15:25)
[2020-11-18] MEDS ORDERED: NALOXONE HCL 0.4 MG/ML VIAL IVPUSH PRN (15:44)
[2020-11-18] MEDS ORDERED: OXYTOCIN 20 UNITS in 0.9% NS 20 UNIT/1,000 ML INFUS.BAG IV ONE (18:13)
[2020-11-18] MEDS ORDERED: BENZOCAINE 20% 57 GM BOTTLE TP PRN (19:27)
[2020-11-18] MEDS ORDERED: METHYLERGONOVINE MALEATE 0.2 MG/1 ML AMP IM PRN (19:27)
[2020-11-18] MEDS ORDERED: WITCH HAZEL 50% (TUCKS) 40 PAD/JAR PAD TP PRN (19:27)
[2020-11-18] MEDS ORDERED: BISACODYL 10 MG SUPP.RECT RC PRN (19:27)
[2020-11-18] MEDS ORDERED: BENZOCAINE 28 GM HEMORRHOIDAL OINTMENT TP PRN (19:27)
[2020-11-18] MEDS ORDERED: OXYTOCIN 20 UNITS in 0.9% NS 20 UNIT/1,000 ML INFUS.BAG IV SCH (19:30)
[2020-11-18] MEDS: IBUPROFEN 600 MG TABLET (FP) PO PRN (20:00)
[2020-11-18] MEDS ORDERED: ACETAMINOPHEN 325 MG TABLET (FP) ONE (20:59)
[2020-11-18] MEDS ORDERED: IBUPROFEN 600 MG TABLET (FP) PO ONE (20:59)
[2020-11-18] MEDS: ACETAMINOPHEN 325 MG TABLET (FP) PO PRN (21:02)
[2020-11-19 08:59] LABS: BASO % 0.1 % (0-2.0); EOS % 0.2 % (0-4.5); HEMATOCRIT 24.1 % (32.4-45.2); HEMOGLOBIN 7.9 GM/dL (10.7-15.3); LYMPH % 14.3 % (8-40); MCH 27.6 pg (25.7-33.7); MCHC 32.8 g/dl (32.0-36.0); MEAN PLT VOLUME 9.6 fl (7.5-11.1); MONO % 10.7 % (3.8-10.2); NEUT % 74.7 % (42.8-82.8); PLATELET COUNT 147 K/MM3 (134-434); RBC 2.87 M/mm3 (3.60-5.2); RDW 16.3 % (11.6-15.6); WHITE BLOOD COUNT 11.8 K/mm3 (4.0-10.0)
[2020-11-19] MEDS: PRENATAL VITAMINS W/ FOLIC ACID TABLET (FP) PO SCH (09:38)
[2020-11-19] MEDS: ACETAMINOPHEN 325 MG TABLET (FP) PO PRN (09:38)
[2020-11-19] MEDS: IBUPROFEN 600 MG TABLET (FP) PO PRN (09:39)
[2020-11-19 17:04] VITALS: TEMP 97.8
[2020-11-19] MEDS ORDERED: SENNOSIDES/DOCUSATE COMBO (SENNA PLUS) TABLET (UD) PO PRN (22:00)
[2020-11-20 06:42] LABS: BASO % 0.3 % (0-2.0); EOS % 1.2 % (0-4.5); HEMATOCRIT 21.2 % (32.4-45.2); LYMPH % 22.9 % (8-40); MCH 27.8 pg (25.7-33.7); MCHC 33.1 g/dl (32.0-36.0); MEAN CELL VOLUME 84.1 fl (80-96); MEAN PLT VOLUME 9.8 fl (7.5-11.1); NEUT % 67.6 % (42.8-82.8); PLATELET COUNT 139 K/MM3 (134-434); RBC 2.52 M/mm3 (3.60-5.2); RDW 16.6 % (11.6-15.6); WHITE BLOOD COUNT 12.3 K/mm3 (4.0-10.0)
[2020-11-20] MEDS: PRENATAL VITAMINS W/ FOLIC ACID TABLET (FP) PO SCH (09:53)
[2020-11-20 12:03] VITALS: BP 126/59; PULSE 97
== END 2020-11-20 12:30 | disposition home or self-care (01) | DRG 560 ==
LOC: JLDR 09:45 → J3W 22:09
PROVIDERS: ADMIT Obstetrics & Gynecology; ATTEND Obstetrics & Gynecology
PROC: 3E033VJ Introduction of Other Hormone into Peripheral Vein, Percutaneous Approach (ICD-10-PCS; principal; 2020-11-18)
PROC: 10E0XZZ Delivery of Products of Conception, External Approach (ICD-10-PCS; 2020-11-18)
PROC: 0W8NXZZ Division of Female Perineum, External Approach (ICD-10-PCS; 2020-11-18)
PROC: 0KQM0ZZ Repair Perineum Muscle, Open Approach (ICD-10-PCS; 2020-11-18)
DX: O48.0 Post-term pregnancy (principal); O70.1 Second degree perineal laceration during delivery; O69.81X0 Labor and delivery complicated by cord around neck, without compression, not applicable or unspecified; O69.89X0 Labor and delivery complicated by other cord complications, not applicable or unspecified; O90.81 Anemia of the puerperium; D64.9 Anemia, unspecified; Z37.0 Single live birth; Z3A.40 40 weeks gestation of pregnancy; Z86.19 Personal history of other infectious and parasitic diseases; Z86.59 Personal history of other mental and behavioral disorders; Z91.5 Personal history of self-harm
CPT/HCPCS: 36415; 59409; 80048; 85025; 85610; 85730; 86780; 86850; 86900; 86901

== ENCOUNTER 2024-06-12 15:06 | Emergency (ER) | payer OTHER ==
[2024-06-12 15:15] VITALS: TEMP 98.8; BMI 25.2
[2024-06-12 16:19] LABS: BASO % 0.3 % (0-2.0); EOS % 3.5 % (0-4.5); HEMATOCRIT 39.1 % (32.4-45.2); LYMPH % 29.1 % (8-40); MCH 29.4 pg (25.7-33.7); MCHC 33.2 g/dl (32.0-36.0); MEAN CELL VOLUME 88.7 fl (80-96); MEAN PLT VOLUME 9.1 fl (7.5-11.1); MONO % 6.6 % (3.8-10.2); NEUT % 60.5 % (42.8-82.8); PLATELET COUNT 210 10^3/uL (134-434); RBC 4.41 M/mm3 (3.60-5.2); RDW 13.3 % (11.6-15.6); WHITE BLOOD COUNT 8.7 K/mm3 (4.0-10.0)
[2024-06-12 16:30] LABS: POTASSIUM 4.1 mmol/L (3.5-5.1)
[2024-06-12 16:32] LABS: CALCIUM 8.6 mg/dL (8.5-10.1)
[2024-06-12 16:33] LABS: ALBUMIN 3.5 g/dl (3.4-5.0); BLOOD UREA NITROGEN 10.8 mg/dL (7-18)
[2024-06-12 16:36] LABS: CREATININE 0.7 mg/dL (0.55-1.3)
[2024-06-12 16:37] LABS: BILIRUBIN,TOTAL 0.3 mg/dL (0.2-1); TOT PROT 6.9 g/dl (6.4-8.2)
[2024-06-12 17:27] LABS: HIV INTERPRETATION NEGATIVE (NEGATIVE)
[2024-06-12 17:45] LABS: URINE APPEARANCE TURBID; URINE BILIRUBIN NEGATIVE (NEGATIVE); URINE COLOR YELLOW; URINE GLUCOSE (UA) NEGATIVE (NEGATIVE); URINE KETONE NEGATIVE (NEGATIVE); URINE LEUK ESTERASE NEGATIVE (NEGATIVE); URINE NITRITE NEGATIVE (NEGATIVE); URINE PROTEIN NEGATIVE (NEGATIVE); URINE UROBILINOGEN 0.2 mg/dL (0.2-1.0)
[2024-06-12 17:47] LABS: HCG,QUALITATIVE URINE Negative
[2024-06-12 17:52] VITALS: BP 115/78; PULSE 78; RESP 18
== END 2024-06-12 17:52 | disposition home or self-care (01) ==
LOC: JER 15:06
DX: R10.31 Right lower quadrant pain (principal); R10.32 Left lower quadrant pain
CPT/HCPCS: 36415; 80053; 81003; 83690; 84703; 85025; 86803; 87086; 87389; 99283-25